=== PATIENT | female | born 1955 | race Caucasian/White ===

== ENCOUNTER → 2018-07-20 13:16 | Outpatient (CLI) | payer MEDICAID, SELFPAY ==
--- NOTE | 2018-07-20 13:30 | SP.MBSS_ITS ---
PRIMARY / SECONDARY DIAGNOSIS: dysphagia (R13.10) REFERRING PHYSICIAN: KAILA Brandon CURRENT DIET: regular textures, thin liquids DENTITION: WFL MENTAL STATUS: sufficient to participate RESPIRATORY STATUS: O2 via room air PREVIOUS MODIFIED BARIUM SWALLOW STUDY: none REASON FOR REFERRAL: Patient is a 62 year old female referred for a modified barium swallow (MBS) study to objectively assess the Patients oropharyngeal swallow function under fluoroscopy secondary to persistent dysphagia status post cerebrovascular accident occurring approximately 3 months prior. 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 Patient reports previous placement on an altered viscosity diet, though it is unclear when she was advanced, as she initially reported no rehabilitation stay, though later stated she was admitted to [facility] for approximately 3 months. Patient arrived to the fluoroscopy suite without a support member, is completely dependent for any mobility task, with what appeared to be MEDICAL HISTORY: Prior cerebrovascular accident; no further past medical history provided. STUDY FINDINGS: Patient participated in a Modified Barium Swallow (MBS) study on 07/20/2018. Dr. Conner was the radiologist present for this evaluation. This study was recorded in the lateral view and images were sent to PACs for storage. The following consistencies were presented to this patient for analysis of oropharyngeal swallow function: thin liquids, nectar thickened liquids, honey thickened liquids, pudding, and a regular textured, Maria Ines Doone cookie. Results of the MBS are as follows: PENETRATION / ASPIRATION SCALE (GUTIERREZ): 1 = does not enter airway 2 = enters airway/above vocal folds/ejected 3 = enters airway/above vocal folds/not ejected 4 = enters airway/contacts vocal folds/ejected 5 = enters airway/contacts vocal folds/not ejected 6 = enters airway/below vocal folds/ejected 7 = enters airway/below vocal folds/not ejected despite effort 8 = enters airway/below vocal folds/no effort VIDEOFLOROSCOPIC SCALE SCORE (GUTIERREZ): Grade I = aspiration of material that has penetrated into the laryngeal vestibule, intact cough reflex Grade II = aspiration < 10 % of the bolus, intact cough reflex Grade III = aspiration of < 10 % of the bolus, reduced cough reflex or aspiration of > 10 % of the bolus, intact cough reflex Grade IV = aspiration of > 10 % of the bolus, reduced cough reflex PENETRATION / ASPIRATION SCALE (SCORE) WITH VIDEOFLOROSCOPIC SCALE SCORE: Thin liquid - 5 mL tsp.: 1 Thin liquids via cup (single sip): 1 Thin liquids via cup (single sip): 1 Thin liquids via cup (single sip): 8 - Grade III [place] thickened liquids via cup (single sip): 1 [place] thickened liquids via cup (single sip): 1 [place] thickened liquids via cup (single sip): 3 Pudding via spoon: 1 Regular textured cookie: 1 [place] thickened liquids via straw (single sip): 8 - Grade III Honey thickened liquids via straw (single sip): 1 Honey thickened liquids via straw (single sip): 1 Honey thickened liquids via straw (single sip): 1 Honey thickened liquids via straw (single sip): 1 IMPRESSION: DIAGNOSIS: moderate to severe oropharyngeal dysphagia (R13.12) ORAL PHASE CHARACTERIZED BY: LABIAL SEAL: intermittent interlabial escape, no progression to anterior lip TONGUE CONTROL DURING BOLUS MANIPULATION: posterior escape of greater than half of bolus BOLUS PREPARATION / MASTICATION: disorganized chewing/mashing with solid pieces of bolus unchewed BOLUS TRANSPORT / LINGUAL MOTION: brisk tongue motion ORAL RESIDUE: residue collection on oral structures PHARYNGEAL PHASE CHARACTERIZED BY: INITIATION OF PHARYNGEAL SWALLOW: bolus head in pyriforms at first hyoid excursion SOFT PALATE ELEVATION: intermittent trace column of contrast/air between soft palate and pharyngeal wall LARYNGEAL ELEVATION: complete superior movement of thyroid cartilage with complete approximation of arytenoids cartilage to epiglottic petiole ANTERIOR HYOID EXCURSION: complete anterior movement EPIGLOTTIC MOVEMENT: intermittent partial epiglottic inversion LARYNGEAL VESTIBULE CLOSURE AT HEIGHT OF SWALLOW: intermittent incomplete laryngeal vestibule closure with narrow column of air/contrast in laryngeal vestibule PHARYNGEAL STRIPPING WAVE: pharyngeal stripping wave present / complete PHARYNGOESOPHAGEAL SEGMENT OPENING: partial distension and partial duration; partial obstruction of flow TONGUE BASE RETRACTION: trace column of contrast between tongue base and posterior pharyngeal wall PHARYNGEAL RESIDUE: intermittent collection of residue within or on pharyngeal structures ESOPHAGEAL PHASE CHARACTERIZED BY: ESOPHAGEAL BOLUS CLEARANCE IN THE UPRIGHT POSITION: could not view EFFECTS OF TREATMENT STRATEGIES ATTEMPTED: Cough and reswallow = ineffective Reduced bolus size = ineffective DIET TEXTURE RECOMMENDATIONS: Will recommend a regular-soft textured, honey thickened liquid diet. COMPENSATORY STRATEGIES RECOMMENDED: Supervision with assistance as needed, cut solids into bite sized pieces, reduced bolus volume, straws with all liquids, seated upright at 90 degrees during PO intake, remain upright for 30-60 minutes post meal (GERD precaution) INTERPRETATION OF RESULTS: Patient presents with moderate to severe oropharyngeal dysphagia (R13.12) secondary to a previous cerebrovascular accident. Oral preparatory phase marked by mild mastication inefficiency, with slowed and at times discoordinated movements, though sufficient to break down bolus. Oral transit marked by quick albeit at times somewhat disjointed swallow onset with varying degrees of posterior bolus loss and diffuse residue. Pharyngeal phase primarily marked by impaired pharyngeal swallow onset timing and coordination resulting in suboptimal bolus location upon swallow onset directly contributing to pre- prandial and prandial penetration and subsequent silent aspiration. Patient able to demonstrate more efficient and independent intake of thin liquids from a straw vs. cup due to the presence of ataxia; no further therapeutic effect noted from adjustments. Noted insufficient cued cough to expel penetrated material / laryngotracheal aspiration with very weak cough response noted ( dystussia / atussia). Patient noted to SILENTLY aspirate with thin and nectar thickened liquids, with clinical assessment relying on identification of classic overt signs and symptoms of aspiration unreliable. RECOMMENDATIONS: Would strongly discourage advancement past honey thickened liquids without completion of a repeat modified barium swallow study due to the extent of aspirate identified that was SILENT in nature. Recommend a repeat modified barium swallow study within 4-8 weeks following establishment of intervention ( if clinically appropriate) to further assess the presence and extent of silent and overt aspiration prior to advancement to thin liquids. Patient is considered at high risk of malnutrition and dehydration associated with extent of diet texture adjustments (early satiety, subadaquate intake volumes); additionally considered at high risk for aspiration related pulmonary complications (identification of silent aspiration of multiple viscosities under fluoroscopy, severe dystussia / atussia, non-ambulatory status, likely cognitive impairments). Patient further at higher risk of pulmonary complications with aspiration of thickened liquids vs. thin liquids, again due to the factors listed above, with no guarantee of prolonged tolerance of honey thickened liquids. Patient additionally considered at high risk for non- compliance, both volitionally (due to the extent of diet texture adjustments and concomitant effects on desirability of altered items) and non-volitionally ( suspect cognitive deficits, unclear as to extent of communication deficits), with a lack of clarity regarding the Patients availability of assistance; would strongly suspect that the Patient will not be able to prepare independently. Copious education provided with a sample take home package, with this clinicians contact information additionally provided. Patient requires intensive skilled speech-language intervention targeting continued diet texture management; training and implementation of recommended compensatory strategies; training and implementation of recommended oropharyngeal strengthening exercises to facilitate improved oropharyngeal strength and coordination; and Patient and caregiver training targeting meal preparation / thickened liquid preparation. ADDITIONAL COMMENTS/RECOMMENDATIONS: Results and recommendations were discussed with the Patient immediately following MBS completion, with the Patient verbalizing understanding and agreement with all recommendations and education provided. IMAGE COUNT: [id number] G-CODES: SWALLOWING [id number] Current Status: CK SWALLOWING G8997 Goal Status: CJ SWALLOWING G8998 Discharge Status: CK Abelardo Viera M.A., CCC-GEODESIST [facility] Speech-Language Pathology Department [email or web address]
== END ==
PROVIDERS: Visit Provider Nurse Practitioner Family
DX: R13.10 Dysphagia, unspecified (principal)
CPT/HCPCS: 74230; 92611

== ENCOUNTER 2018-08-31 08:49 | Emergency (ER) | payer MEDICAID, SELFPAY ==
[2018-08-31 08:51] VITALS: BP 111/82; PULSE 101; RESP 16; TEMP 36.7; O2SAT 95; BMI 20.4
--- NOTE | 2018-08-31 09:02 | RAD_ITS ---
STUDY: X-RAY CHEST REASON FOR EXAM: Female, 62 years old. Cough. Confusion TECHNIQUE: Single AP portable view of the chest. # of Images: 1 COMPARISON: None. FINDINGS: There is hyperinflation of the lungs consistent with chronic obstructive lung disease (COPD). There is no demonstrated pleural abnormality. Normal size heart. Normal mediastinum and matt. Normal visualized pulmonary arteries. Normal visualized aortic arch and descending thoracic aorta. Normal visualized thoracic spine. Normal visualized ribs, clavicles, and shoulders. There is no demonstrated abnormality of the visualized soft tissue structures of the upper abdomen. RAD/Chest 1 View (Portable) IMPRESSION: COPD. Electronically Signed: Neyda Walker MD at 9:55 EDT Tel , Service support ,
--- NOTE | 2018-08-31 09:02 | CT_ITS ---
STUDY: CT BRAIN WITHOUT CONTRAST REASON FOR EXAM: Female, 62 years old. ALTERED MENTAL STATUS RADIATION DOSAGE (If Supplied By Facility): CTDIvol = ( 44.99 ) mGy, DLP = ( 762.36 ) mGycm TECHNIQUE: Transaxial CT imaging of the brain was performed without administration of intravenous contrast material. # of Images: 229 Individualized dose optimization techniques were used for this CT. COMPARISON: None. FINDINGS: Normal soft tissue structures. Normal calvarium. Normal size ventricles and extra-axial spaces for the patient's age. Normal white matter tracts of the cerebral hemispheres. Normal basal ganglia and thalami. Normal brainstem. There is moderate cerebellar atrophy. There is no intracranial hemorrhage. There are no findings of an acute ischemic infarction. There is mucoperiosteal inflammatory disease of the paranasal sinuses consistent with mild chronic sinusitis. CT/Brain/Head without Contrast IMPRESSION: Moderate cerebellar atrophy. Electronically Signed: Neyda Walker MD at 10:56 EDT Tel , Service support ,
--- NOTE | 2018-08-31 09:04 | EKG12_ITS ---
Test Reason : Blood Pressure : / mmHG Vent. Rate : 103 BPM Atrial Rate : 103 BPM P-R Int : 150 ms QRS Dur : 066 ms QT Int : 346 ms P-R-T Axes : 072 -53 076 degrees QTc Int : 453 ms Sinus tachycardia Left axis deviation Septal infarct , age undetermined Abnormal ECG Confirmed by FRANCISCO ROSE, MARIUSZ ([id number]), technical writer and editor YEIMI LOZOYA ([id number]) on 09/03/2018 12:51:01 PM Referred By: CHRISTEL Confirmed By:MARIUSZ SINGH MD
--- NOTE | 2018-08-31 09:06 | ED.VISSUMM ---
- ER Visit Summary Date of Service: 08/31/18 Chief Complaint: Altered mental status History of Present Illness: The patient is a 62 F who presents with altered mental status that was noticed today at the [facility]. The report the patient is more lethargic than normal. They also reported that the patient had a low blood pressure at their facility today. Patient will answer some yes/no questions but is basically nonverbal and is a poor historian. Patient denies any abdominal pain. Patient denies any shortness of breath. Physical Examination: Vital signs are stable. Patient is afebrile. Patient is in no acute distress. Oral mucosa is pink and slightly dry. Neck is supple. Trachea is midline. There is no JVD noted. Heart was regular rate and rhythm. There were no murmurs auscultated. Lungs are clear and equal bilateral. There is adequate respiratory effort noted. Abdomen is soft. Bowel sounds are normal. There is no apparent tenderness. There is no rebound or guarding. Cranial nerves II through XII are grossly intact. Patient is moving all extremities. I do not appreciate any focal deficits. Test Results: EKG showed sinus tachycardia with a rate of 103. There are no acute ST or T wave changes. Portable chest x-ray shows evidence of COPD but no acute infiltrate. CBC, comprehensive metabolic profile, and urinalysis were obtained and were all within normal limits. CT scan of the brain was obtained. There is no acute infarct or bleed. Emergency Department Course and Treatment: Patient became more alert and was able to answer more questions appropriately during her emergency department course. This may be related to her medication. It is unclear when she took her medication or if she may have taken an extra dose of her nighttime medication. Patient was instructed to follow-up with her primary care physician in 5-7 days. Disposition: Discharge home Impression: Somnolence This note was generated with [employer] dictation software. It may contain incorrect words, spelling, and punctuation that were not noted in review of the chart prior to signing ED Disposition - Plan for ED Patient: Disposition: Home or Assisted Living Chief Complaint: Weakness Diagnosis: Somnolence Instructions: ED Weakness [facility] [place]
--- NOTE | 2018-08-31 09:07 | ED.RN ---
NO OLD EKG'S IN MUSE
[2018-08-31 09:29] LABS: Absolute Lymphocyte Count 2.75 X10^3/ul (0.83-4.51); Absolute Neutrophil Count 2.6 X10^3/uL (2.0-7.7); Basophil# 0.04 X10^3/uL; Basophil% 0.6 % (0-1); Eosinophil# 0.25 X10^3/uL; Eosinophils% 3.8 % (0-5); Hematocrit 45.9 % (37-47); Lymphocyte # 2.75 X10^3/ul (4.0); Lymphocyte % 41.4 % (19-41); Mean Corp Hgb Conc 32.7 g/gl (32-36); Mean Corpuscular Hgb 31.7 pg (27.0-32.0); Mean Platelet Vol. 8.7 fl (6.2-12.0); Monocyte% 15.1 % (0-10); Neutrophil # 2.59 X10^3/uL (2.7-7.7); Neutrophil % 38.9 % (47-70); Platelet Count 327 K/mm3 (150-450); Red Blood Count 4.73 M/mm3 (4.2-5.4); White Blood Count 6.6 K/mm3 (4.4-11.0)
[2018-08-31 09:31] LABS: Bedside Glucose 79 mg/dL (70-110)
[2018-08-31 09:48] LABS: POSITIVE COUNT NO; POSITIVE DIFFERENTIAL NO; POSITIVE MORPHOLOGY NO
[2018-08-31 09:51] LABS: ALB/GLOB Ratio 0.9 RATIO (0.9-2.4); AST(SGOT) 19 U/L (15-37); Alanine Aminotransfer ALT/SGPT 32 U/L (13-56); Albumin, Serum 3.3 g/dL (3.2-5.0); Alkaline Phosphatase 151 U/L (45-117); Anion Gap 8 (5-15); BUN 18 mg/dL (7-18); BUN/Creat Ratio 28.3 RATIO (10-20); Calcium,Total 8.9 mg/dL (8.5-10.1); Chloride 104 mmol/L (98-107); Creatinine, Serum 0.64 mg/dL (0.55-1.02); EST Glomerular Filtration Rate 100 mL/min (>60); Est Glom Filt Rate - Afr Amer 121 mL/min (>60); Estimated Creatinine Clearance 64.63 ml/min; Globulin 3.6 g/dL (2.2-4.2); Glucose 86 mg/dL (74-106); Potassium 4.2 mmol/L (3.5-5.1); Protein, Total 6.9 g/dL (6.4-8.2); Sodium Level 142 mmol/L (136-145)
[2018-08-31 09:52] LABS: Lactic Acid 1.1 mmol/L (0.4-2.0)
[2018-08-31 10:11] LABS: Bacteria 0 SEEN /hpf (None Seen); Mucous, Urine 0 SEEN /hpf (<or=2+); White Blood Cells 0 SEEN /hpf (0-5)
[2018-08-31 10:12] LABS: Color, Urine Yellow (Yellow); Glucose, Dipstick Normal (Normal); Ketone-Dipstick Negative (Negative); Leukocyte Esterase-Dipstick Negative /ul (Negative); Nitrite-Dipstick Negative (Negative); Occult Blood-Urine 150 /ul (Negative); Protein-Dipstick Negative (Negative); Urine Bilirubin Dipstick Negative (Negative); Urine Clarity Sl. Cloudy (Clear); Urine Urobilinogen Normal (Normal)
[2018-08-31 10:28] LABS: Red Blood Cells-Urine 0-5 SEEN /hpf (0-5); Squamous Epithelial Cells - UA 0-5 SEEN /hpf (5-10)
[2018-08-31 10:59] VITALS: BP 121/76; PULSE 90; RESP 18; O2SAT 96
[2018-08-31] MEDS: 0.9% Normal Saline 1,000 ML 1000 ML IV (11:01)
[2018-08-31 11:41] VITALS: BP 126/78; PULSE 94; RESP 20; O2SAT 96
== END 2018-08-31 12:25 | disposition home or self-care (01) ==
PROVIDERS: Emergency Provider Emergency Medicine
DX: R40.0 Somnolence (principal); J44.9 Chronic obstructive pulmonary disease, unspecified
CPT/HCPCS: 70450; 71045; 80053; 81001; 82962; 83605; 84484; 85025; 93005; 96360; 99285; J7030; A4216